=== PATIENT | male | born 1935 | race Caucasian/White ===

== ENCOUNTER 2019-10-24 11:41 | Inpatient (IN) | payer MEDICARE, SELFPAY ==
[2019-10-24] VITALS (8 sets, daily range): BP systolic 101–129; BP diastolic 53–74; PULSE 74–84; RESP 14–16; TEMP 36.6–37.4; O2SAT 96–98; BMI 22.4
--- NOTE | ~2019-10-24 | XR_ITS ---
EXAMINATION: XR chest 1V portable EXAM DATE: 10/27/2019 06:57 INDICATION: Leukocytosis. TECHNIQUE: Portable AP frontal chest x-ray was obtained. Comparison is made to prior examination from 10/24/2019. FINDINGS: Mild chronic hyperinflation. Borderline heart size. Small amount of right basilar opacity p robably atelectasis but pneumonia not excludable. There is no pneumothorax suspected. There are no pl eural effusions. There are bony degenerative changes. Accounting for differences in technique, there is no significant interval change. IMPRESSION: Small amount of right basilar atelectasis and/or possibly infection Reviewed, dictated and finalized at location A. IMPRESSION: Small amount of right basilar atelectasis and/or possibly infectio n
--- NOTE | ~2019-10-24 | CT_ITS ---
EXAMINATION: CT abdomen pelvis wo con DATE: 10/27/2019 12:31 INDICATION: Hydronephrosis TECHNIQUE: Computed tomography (CT) of the abdomen and pelvis was performed without intravenous contr ast. Automated exposure control and iterative reconstruction technique were employed. The dose-length product was 297.53 mGy-cm. COMPARISON: 10/24/2019 FINDINGS: Bronchiectatic change at the bilateral lung bases. Small right pleural effusion. Discoid atelectasis in the right middle and bilateral lower lobes. Pneumatocele in the left lower lobe. Heart size is nor mal. Atherosclerotic coronary artery calcifications. Aortic valve calcification. No pericardial effus ion. A couple subcentimeter cysts in the left hepatic lobe. Gallbladder, spleen, pancreas and bilater al adrenal glands are normal. Significant improvement in now minimal bilateral hydronephrosis. No uro lithiasis. Thapa catheter bulb and gas within the decompressed bladder which demonstrates a diffusely thickened wall. Prostatomegaly. Short loop of small bowel extends into a small supraumbilical ventra l hernia. No bowel obstruction. Small amount of ascites scattered throughout the abdomen and pelvis a nd extending into a small right inguinal hernia. Additional small fat-containing left inguinal hernia . No pathologically enlarged abdominal or pelvic lymphadenopathy. There is calcified atherosclerosis of the aorta and many of the other arteries. Severe thoracolumbar spondylosis. Chronic T11 and T12 c ompression fractures. 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 IMPRESSION: 1. Significant improvement in now minimal bilateral hydronephrosis with interval placement of a Thapa catheter in the now decompressed bladder. 2. Diffuse bladder wall thickening which could be related to cystitis either acute or chronic or supervisor prepress [place] outlet obstruction from the enlarged prostate. 3. Small right pleural effusion. 4. Small amount of ascites. 5. Short segment of nonobstructed small bowel extends into a small supraumbilical ventral hernia. 6. Small bilateral fat-containing inguinal hernias, on the right also containing a small amount of as cites. Reviewed, dictated and finalized at location A. IMPRESSION: 1. Significant improvement in now minimal bilateral hydronephrosis with interva l placement of a Thapa catheter in the now decompressed bladder. 2. Diffuse bladder wall thickening which could be related to cystitis either ac wendi or chronic or chronic outlet obstruction from the enlarged prostate. 3. Small right pleural effusion. 4. Small amount of ascites. 5. Short segment of nonobstructed small bowel extends into a small supraumbilic al ventral hernia. 6. Small bilateral fat-containing inguinal hernias, on the right also containin g a small amount of ascites.
--- NOTE | ~2019-10-24 | CT_ITS ---
EXAMINATION: CT abdomen pelvis wo con DATE: 10/24/2019 13:20 INDICATION: Umbilical pain TECHNIQUE: Computed tomography (CT) of the abdomen and pelvis was performed without intravenous contr ast. The dose-length product (DLP) was 364.34 mGy-cm. Automated exposure control and iterative recons truction technique were employed. COMPARISON: None FINDINGS: Minimal dependent atelectasis is present in the lung bases. The heart size is normal. Small cysts of the liver measure up to 3 mm in the left hepatic lobe. Within the limitations of noncontras t examination, the spleen, pancreas, gallbladder, and adrenal glands are normal. There is moderate to severe bilateral hydroureteronephrosis. There is diffuse thickening of the bladder wall. There appea rs to be layering hyperdense material in the urinary bladder. There is calcified atherosclerosis of t he aorta and many of the other arteries. No pathologically enlarged abdominal or pelvic lymph nodes a re identified. There is no free intraperitoneal gas or evidence of bowel obstruction. There is a smal l right inguinal hernia containing fat and ascites. There is severe lumbar spondylosis. There is mild right and advanced left hip osteoarthritis. IMPRESSION: 1. Diffuse circumferential bladder wall thickening which may reflect cystitis or chronic outlet obstr uction. Moderate to severe bilateral hydroureteronephrosis may also be due to chronic outlet obstruct ion. Reviewed, dictated and finalized at location A. IMPRESSION: 1. Diffuse circumferential bladder wall thickening which may reflect cystitis o r chronic outlet obstruction. Moderate to severe bilateral hydroureteronephrosi s may also be due to chronic outlet obstruction.
--- NOTE | ~2019-10-24 | XR_ITS ---
EXAMINATION: XR chest 2V DATE: 10/24/2019 13:15 INDICATION: Weakness. TECHNIQUE: Frontal and lateral views of the chest were obtained. COMPARISON: Chest 2 views 05/04/2017, CT abdomen and pelvis 10/24/2019 FINDINGS: There are lucencies in the lungs, consistent with emphysema. Calcified right lung nodules a nd calcified right hilar lymph nodes are consistent with old granulomatous disease. There is mild ate lectasis in the lower lung zones. No pleural effusion or pneumothorax. The heart size is normal. IMPRESSION: 1. Mild atelectasis in the lower lung zones. 2. Emphysema. Reviewed, dictated and finalized at location A.
--- NOTE | 2019-10-24 12:14 | ECG_ITS ---
Measurements Intervals [place] Rate: 79 P: 75 MN: 173 QRS: -9 QRSD: 117 T: 61 QT: 334 QTc: 384 Interpretive Statements SINUS RHYTHM VENTRICULAR PREMATURE COMPLEX INCOMPLETE RIGHT BUNDLE BRANCH BLOCK BORDERLINE ECG Electronically Signed On 10-24-2019 13:20:46 CDT by Conor Kim D.O.
[2019-10-24 12:37] LABS: Hematocrit 31.2 % (37.0-46.0); Hemoglobin 10.5 g/dL (12.4-15.3); Mean Corpuscular HGB Conc 33.7 g/dL (32.0-36.0); Mean Corpuscular Hemoglobin 31.2 pg (27.0-31.0); Mean Corpuscular Volume 92.6 fL (78.0-102.0); Mean Platelet Volume 9.3 fl (8.7-11.0); Platelet Count Result 245 K/mm3 (150-420); Red Blood Count 3.37 M/mm3 (4.70-6.10); Red Cell Distribution Width 14.8 % (11.6-14.4); White Blood Count 11.7 K/mm3 (4.8-10.8)
[2019-10-24] MEDS: SODIUM CHLORIDE 0.9% IV 1,000 ML 999 ML IV CONT (12:50)
[2019-10-24 12:58] LABS: BNP 319 pg/mL (0-100)
[2019-10-24 13:01] LABS: Add Urine Microscopic? YES; Appearance Urine Cloudy (Clear); Bilirubin Urine Negative (Negative); Blood Urine 3+ (Negative); Color Urine Yellow (Yellow); Glucose Urine UA Negative (Negative); Ketones Urine Negative (Negative); Leukocyte Esterase Ur 2+ (Negative); Nitrate Urine Positive (Negative); Protein Urine 2+ (Negative); Specific Grav Ur 1.015 (1.010-1.020); Urobilinogen Urine 0.2 mg/dL (0.2-1.0)
[2019-10-24 13:05] LABS: Lactic Acid 1.3 mmol/L (0.4-2.0)
--- NOTE | 2019-10-24 13:05 | ED.WEAKNESS ---
HPI - Weakness General Chief complaint: Weakness Stated complaint: weak Source: patient Mode of arrival: wheelchair Limitations: no limitations History of Present Illness HPI Narrative: This is an 84-year-old gentleman that lives at home presents from his doctor's office with some increasing generalized weakness, currently the patient is resting comfortably afebrile with no nausea vomiting no abdominal pain does have some suprapubic tenderness with mild bilateral flank tenderness with soft abdomen, there is no nausea vomiting no diarrhea constipation. Patient denies chest pain or shortness of breath. I was called by his primary care physician and was informed that the patient lives at home and family has been noticing increased weakness with a decreased appetite, and difficulty with walking. Patient also has been having some suprapubic tenderness and dysuria. Patient's past medical history includes hypertension and benign prostatic hypertrophy. MD Complaint: generalized weakness Onset (ago): day(s) Duration: constant Location: generalized Migration: none Severity: moderate Relieving factors: none Exacerbating factors: none Associated symptoms: denies other symptoms Related Data Home Medications Medication Instructions Recorded Confirmed lisinopril 10 mg PO HS 10/24/19 10/24/19 Allergies Allergy/AdvReac Type Severity Reaction Status Date / Time No Known Allergies Allergy Verified 10/24/19 13:42 Review of Systems Review of Systems: All systems reviewed & are unremarkable except as noted in HPI and below PMFSH Past Medical History Medical History BPH (benign prostatic hyperplasia) HTN (hypertension) Exam Const: General: no acute distress and alert Orientation/consciousness: patient oriented x3 HENMT: Head: normal to inspection Eyes: Conjunctivae: conjunctivae normal Pupils: Equal, round and reactive pupils present Neck: Neck: normal visual inspection and no lymphadenopathy Chest: Chest palpation & inspection: normal inspection of the chest Resp: Effort & Inspection: normal respiratory effort Auscultation: clear to auscultation bilaterally Cardio: Rate: regular rate Rhythm: regular rhythm GI: GI Palp: Yes Soft to palpation and Yes Tenderness to palpation present (GI) ( Suprapubic area) Percussion: Yes normal to percussion : General: Yes CVA tenderness Testes: Testes normal Back/Spine/Pelvis: Back: CVA tenderness Skin: General skin exam: normal color Rashes: no rashes Neuro: General: patient oriented x3, moves all extremities, no meningeal signs and no focal motor deficits Extrem: General: normal to inspection Psych: Mental Status: mental status grossly normal Thought content: Yes Normal thought content present MDM - Weakness Lab Data Result diagrams: 10/24/19 12:31 10/24/19 12:31 Labs: Lab Results 10/24/19 10/24/19 10/24/19 Range/Units 12:31 12:31 12:31 WBC 11.7 H (4.8-10.8) K/mm3 RBC 3.37 L (4.70-6.10) M/mm3 Hgb 10.5 L (12.4-15.3) g/dL Hct 31.2 L (37.0-46.0) % MCV 92.6 (78.0-102.0) fL MCH 31.2 H (27.0-31.0) pg MCHC 33.7 (32.0-36.0) g/dL RDW 14.8 H (11.6-14.4) % Plt Count 245 (150-420) K/mm3 MPV 9.3 (8.7-11.0) fl Sodium Pending Potassium Pending Chloride Pending Carbon Dioxide Pending Anion Gap Pending BUN Pending Creatinine Pending Estim Creat Clear Calc Pending Estimated GFR Pending Glucose Pending Calculated Osmolality Pending Lactic Acid Pending Calcium Pending Total Bilirubin Pending AST Pending ALT Pending Alkaline Phosphatase Pending Troponin I Pending B-Natriuretic Peptide 319 H (0-100) pg/mL Total Protein Pending Albumin Pending Lipase Pending TSH Pending Urine Color Urine Appearance Urine p
[2019-10-24 13:09] LABS: WBC Urine >75 /hpf (0-3)
[2019-10-24 13:10] LABS: Bacteria Urine Trace /hpf
[2019-10-24 13:15] LABS: Alanine Aminotransferase 29 U/L (16-63); Albumin Level 2.5 g/dL (3.4-5.0); Alkaline Phosphatase 59 U/L (46-116); Anion Gap 18.4 mmol/L (7-16); Aspartate Amino Transferase 22 U/L (15-37); Bilirubin,Total 0.5 mg/dL (0.00-1.00); Blood Urea Nitrogen 123 mg/dL (7-18); Calcium 9.2 mg/dL (8.5-10.1); Carbon Dioxide 20 mmol/L (21-32); Chloride 102 mmol/L (98-108); Estimated Glomerular Filt Rate 8; Glucose 120 mg/dL (70-99); Lipase 129 U/L (73-393); Osmolality Calculated 320 mOsm/kg (285-295); Potassium 5.4 mmol/L (3.5-5.1); Sodium 135 mmol/L (136-145); Total Protein 6.9 g/dL (6.4-8.2)
[2019-10-24 13:17] LABS: Troponin I < 0.02 ng/mL (0.00-0.056)
[2019-10-24] MEDS: SODIUM CHLORIDE 0.9% IV 1,000 ML 100 ML IV CONT (14:10)
--- NOTE | 2019-10-24 17:12 | ADMGEN ---
This patient, Grzegorz Stewart, was admitted to 2nd Floor Room 209-1. Patient/family oriented to hospital policies and general routines including ID bracelet, bed and alarms, visiting hours, pain management, procedures, bathroom and other care routines, personal items, smoking policy, room service/diet, and visiting hours. Valuables list has been completed. Information on how to activate the Rapid Response Team has been discussed. Patient/Family are encouraged to report perceived risks to care and to ask questions if they do not understand what they are told or what they should do.
--- NOTE | 2019-10-24 18:35 | PC.NURSE ---
Resting quietly in bed. IV fluids continued. Provided with extra blanket per request. Reports no other needs at present. Call light and belongings within reach.
[2019-10-24] MEDS: ACETAMINOPHEN 325 MG TABLET 650 MG PO (22:12)
[2019-10-25] VITALS (7 sets, daily range): BP systolic 86–115; BP diastolic 44–63; PULSE 74–87; RESP 12–18; TEMP 36.7–37.3; O2SAT 95–99
[2019-10-25] MEDS: SODIUM CHLORIDE 0.9% IV 1,000 ML 100 ML IV CONT ×2 (00:06→10:38)
[2019-10-25 08:21] LABS: Hematocrit 29.1 % (37.0-46.0); Hemoglobin 9.8 g/dL (12.4-15.3); Mean Corpuscular HGB Conc 33.7 g/dL (32.0-36.0); Mean Corpuscular Hemoglobin 31.1 pg (27.0-31.0); Mean Corpuscular Volume 92.4 fL (78.0-102.0); Mean Platelet Volume 9.4 fl (8.7-11.0); Platelet Count Result 234 K/mm3 (150-420); Red Blood Count 3.15 M/mm3 (4.70-6.10); Red Cell Distribution Width 14.6 % (11.6-14.4); White Blood Count 13.8 K/mm3 (4.8-10.8)
[2019-10-25 08:33] LABS: Alanine Aminotransferase 31 U/L (16-63); Albumin Level 2.2 g/dL (3.4-5.0); Alkaline Phosphatase 54 U/L (46-116); Anion Gap 10.5 mmol/L (7-16); Aspartate Amino Transferase 24 U/L (15-37); Bilirubin,Total 0.4 mg/dL (0.00-1.00); Blood Urea Nitrogen 95 mg/dL (7-18); Calcium 8.8 mg/dL (8.5-10.1); Carbon Dioxide 18 mmol/L (21-32); Chloride 100 mmol/L (98-108); Estimated CRCL calculation 11 ml/min; Estimated Glomerular Filt Rate 12; Glucose 97 mg/dL (70-99); Magnesium 2.1 mg/dL (1.8-2.4); Osmolality Calculated 287 mOsm/kg (285-295); Phosphorus 4.6 mg/dL (2.6-4.7); Potassium 4.5 mmol/L (3.5-5.1); Sodium 124 mmol/L (136-145); Total Protein 6.1 g/dL (6.4-8.2)
[2019-10-25 08:40] LABS: Neutrophils Percent Manual 80 % (46-73); Total Cells Counted 100
[2019-10-25 08:41] LABS: Band Neutrophils Percent 0 % (0-6); Basophils Percent Manual 0 % (0-1); Eosinophils Absolute Manual 0.13 K/mm3 (0.02-0.5); Eosinophils Percent Manual 1 % (1-6); Lymphocytes Absolute Manual 1.38 K/mm3 (1.1-4.5); Lymphocytes Percent Manual 10 % (18-44); Monocytes Absolute Manual 0.96 K/mm3 (0.1-0.90); Monocytes Percent Manual 7 % (3-9); Myelocytes Percent 2 %; Neutrophils Absolute Manual 11.04 K/mm3 (1.3-6.7); Platelet Estimate Adequate (Adequate)
[2019-10-25 08:42] LABS: BNP 319 pg/mL (0-100)
[2019-10-25] MEDS: TAMSULOSIN HCL 0.4 MG CAPSULE PO (09:34)
[2019-10-25 11:06] LABS: Prostate Specific Antigen 13.6 ng/mL (< OR = 4.0)
[2019-10-25 11:18] LABS: Potassium Urine Random 18.2 mmol/L (12-62)
[2019-10-25 11:21] LABS: Sodium Urine Random 75 mmol/L (20-110)
--- NOTE | 2019-10-25 11:30 | PC.NURSE ---
Patient provided with prune juice to assist in having BM. Tolerated well. Resting in bed. Denies any needs. States he feels better than yesterday but still doesnt feel well. Call landon at side. IV fluids cont. per order.
[2019-10-25 11:46] LABS: Eosinophil Urine 0 % (0-0)
[2019-10-25 13:15] LABS: Blood Urea Nitrogen 88 mg/dL (7-18); Calcium 8.5 mg/dL (8.5-10.1); Carbon Dioxide 20 mmol/L (21-32); Chloride 105 mmol/L (98-108); Estimated CRCL calculation 11 ml/min; Estimated Glomerular Filt Rate 13; Glucose 128 mg/dL (70-99); Osmolality Calculated 312 mOsm/kg (285-295); Sodium 137 mmol/L (136-145)
[2019-10-25 13:28] LABS: Amylase 49 U/L (25-115)
--- NOTE | 2019-10-25 13:45 | PC.NURSE ---
Patient had large bowel movement. Stool loose/liquid. Clean gown and socks applied to patient. Nurse assisted patient with jas-care. Patient transfered well with walker and gait belt. Sitting up in chair resting. PT Dane in room to work with patient.
--- NOTE | 2019-10-25 14:09 | PM.IMHP ---
H&P: HPI History of Present Illness Chief complaint: weak Narrative: Grzegorz Stewart is a 84 year old male story of Present Illness HPI Narrative: This is an 84-year-old gentleman that lives at home presents from his doctor's office with some increasing generalized weakness, currently the patient is resting comfortably afebrile with no nausea vomiting no abdominal pain does have some suprapubic tenderness with mild bilateral flank tenderness with soft abdomen, there is no nausea vomiting no diarrhea constipation. Patient denies chest pain or shortness of breath. I was called by his primary care physician and was informed that the patient lives at home and family has been noticing increased weakness with a decreased appetite, and difficulty with walking. Patient also has been having some suprapubic tenderness and dysuria. Patient's past medical history includes hypertension and benign prostatic hypertrophy. MD Complaint: generalized weakness Onset (ago): day(s) Duration: constant Location: generalized Migration: none Severity: moderate Relieving factors: none Exacerbating factors: none Review of Systems Review of Systems: All systems reviewed & are unremarkable except as noted in HPI and below Constitutional: Constitutional: Reports as per HPI, Reports fatigue, Reports lethargy and Reports weakness Eyes: Eyes: Reports as per HPI and Denies blurry vision ENT: Reports as per HPI, Reports Normal hearing present, Denies dysphagia, Denies epistaxis, Denies nasal congestion and Denies nasal discharge Cardiovascular: Cardiovascular: Reports as per HPI, Denies chest pain, Denies diaphoresis, Denies pedal edema, Denies leg edema, Denies lightheadedness and Denies palpitations Respiratory: Respiratory: Reports as per HPI, Denies chest congestion, Denies cough, Denies hemoptysis, Denies dyspnea, Denies dyspnea on exertion and Denies wheezing Gastrointestinal: Gastrointestinal: Reports as per HPI, Denies abdominal pain, Denies melena, Denies bloating, Denies hematochezia, Reports constipation (says he hasn't had a BM in 3 days & has been constipated lately at home.), Denies heartburn, Denies diarrhea, Denies nausea, Denies vomiting and Denies hematemesis Genitourinary: Genitourinary: Reports as per HPI, Denies hematuria, Reports oliguria, Reports dysuria, Denies flank pain, Reports urinary frequency, Reports urinary urgency and Reports other Comments: 2 inguinal hernias (right with past surgery and hardened scar tissue at that location but no pain or entrapment noted. CT scan noted it as well and said it contained fat and ascites.) (left soft, no pain, no entrapment noted). 1 umbilical hernia (soft, palpable, but bowel noted when patient sits up from lying position, then bowel retracts when patient relaxes, again no pain or entrapment noted). Musculoskeletal: Musculoskeletal: Reports as per HPI, Denies back pain, Reports myalgias, Denies arthralgias, Denies joint swelling, Denies neck pain and Reports stiffness Integumentary/Breasts: Skin/Breast: Reports as per HPI, Denies pruritus, Denies erythema, Denies rash, Denies skin pain and Reports wounds Comments: coccyx has a small pencil eraser sized wound noted at the top of buttock crease ( of patient has been applying antibiotic cream to it at home). No redness or drainage noted. Placed orders to help it heal. Neurologic: Reports as per HPI, Denies Abnormal speech present, Denies confusion, Denies headache(s) and Denies numbness Psychiatric: Psychiatric: Reports as per HPI, Denies anxiety, Denies confusion, Denies depression, Denies homicidal ideation and Denies suicidal ideation PMF Past Medical History Medical History BPH (benign prostatic hyperplasia) HTN (hypertension) Social History Social History Smoking status: Never smoker Alcohol intake: never Substance use: never Gender ident
[2019-10-25] MEDS: SODIUM CHLORIDE 0.9% IV 1,000 ML 75 ML IV CONT (21:10)
--- NOTE | 2019-10-25 21:20 | PM.EVENT ---
Event Note Event Note Event Note: Patient states he has been feeling a little better since yesterday. He denies abdominal pain, lightheadedness and shortness of breath. regular rate and rhythm without murmur or gallop. Lungs are clear to auscultation bilaterally. Abdomen is soft and nontender and without masses. Extremities are warm dry pink. Hyponatremia today is likely artifactual. Will closely watch his fluid status as well as the recovery of his kidney function over the next few days. I have examined the patient reviewed the chart. I discussed the patient's care with A Chema FOWLER and agree with her assessment plan.
[2019-10-25 21:25] LABS: Glucose Point of Care 116 (65-105)
--- NOTE | 2019-10-25 22:20 | PC.NURSE ---
Patient lying in bed watching tv. IVF infusing to site in RFA without difficulty. Thapa catheter patent and draining clear yellow urine. Denies pain/complaints/needs @ this time. No distress noted. Call light in reach.
[2019-10-26] VITALS (7 sets, daily range): BP systolic 105–120; BP diastolic 52–63; PULSE 75–84; RESP 16–18; TEMP 36.5–37.3; O2SAT 18–97
--- NOTE | 2019-10-26 01:15 | PC.NURSE ---
Patient appears to be sleeping by the rise and fall of his chest. Respirations even and unlabored. Catheter patent and draining clear yellow urine. No distress noted. Call light in reach.
[2019-10-26 05:32] LABS: Hematocrit 28.1 % (37.0-46.0); Hemoglobin 9.4 g/dL (12.4-15.3); Mean Corpuscular HGB Conc 33.5 g/dL (32.0-36.0); Mean Corpuscular Volume 92.7 fL (78.0-102.0); Mean Platelet Volume 9.5 fl (8.7-11.0); Platelet Count Result 287 K/mm3 (150-420); Red Blood Count 3.03 M/mm3 (4.70-6.10); Red Cell Distribution Width 14.6 % (11.6-14.4); White Blood Count 14.6 K/mm3 (4.8-10.8)
[2019-10-26 06:20] LABS: Alanine Aminotransferase 42 U/L (16-63); Alkaline Phosphatase 59 U/L (46-116); Anion Gap 17.9 mmol/L (7-16); Aspartate Amino Transferase 37 U/L (15-37); Bilirubin,Total 0.3 mg/dL (0.00-1.00); Blood Urea Nitrogen 70 mg/dL (7-18); Carbon Dioxide 19 mmol/L (21-32); Chloride 106 mmol/L (98-108); Estimated CRCL calculation 14 ml/min; Estimated Glomerular Filt Rate 17; Glucose 106 mg/dL (70-99); Iron 16 ug/dL (65-175); Osmolality Calculated 306 mOsm/kg (285-295); Percent Iron Saturation 14 % (12-57); Potassium 4.9 mmol/L (3.5-5.1); Sodium 138 mmol/L (136-145); Total Protein 5.2 g/dL (6.4-8.2)
[2019-10-26 06:36] LABS: Ferritin > 1000 ng/mL (26-388)
[2019-10-26] MEDS: TAMSULOSIN HCL 0.4 MG CAPSULE PO (08:48)
[2019-10-26] MEDS: SODIUM CHLORIDE 0.9% IV 1,000 ML 75 ML IV CONT (09:21)
--- NOTE | 2019-10-26 10:34 | PM.IMPN ---
Progress Note: A&P Assessment and Plan (1) Acute renal failure (ARF): Qualifiers: Acute renal failure type: unspecified Qualified Code(s): N17.9 - Acute kidney failure, unspecified <Mary Bear NP - Last Filed: 10/26/19 17:38> Code(s): N17.9 - Acute kidney failure, unspecified <Mary Bear NP - Last Filed: 10/26/19 17:38> Status: Acute <Mary Bear NP - Last Filed: 10/26/19 17:38> Assessment and Plan: ACUTE. IMPROVING. creatinine has continued to improve from 4.23 to 3.39 today. continued IVFs until today, discontinued today, differential diagnoses: obstruction of urine, UTI, dehydration. CT scan showed: moderate to severe bilateral hydroureteronephrosis. creatinine at admission was 6.47 yesterday, improved this morning to 4.57, and further improved this afternoon to 4.3 GFR values also improving potassium level improved from 5.4 at admission yesterday to 4.5 this morning encourage oral hydration renal dose medications maintain adequate blood pressures with maps greater than 60 or 65 monitor I/Os. <Mary Bear NP - Last Filed: 10/26/19 17:38> (2) Bladder outflow obstruction: Code(s): N32.0 - Bladder-neck obstruction <Mary Bear NP - Last Filed: 10/26/19 17:38> Status: Acute <Mary Bear NP - Last Filed: 10/26/19 17:38> Assessment and Plan: ACUTE. RESOLVED with kwok placement. Differential diagnoses include UTI, BPH, hernia. Kwok catheter inserted in the emergency room. Kwok catheter patency maintained I/Os : 1290/2350, 3213/1800. will need to maintain kwok patency until renal function (creatinine/GFR improves to WNL), then try discontinuing Kwok to see if patient is again able to urinate on his own and maintain adequate urine output) prior to discharge. Will need to follow up with Urologist soon after discharge. lipase and amylase level were both found to be within normal limits lactate level was 1.3 Kwok removal trial prior to discharge. <Mary Bear NP - Last Filed: 10/26/19 17:38> (3) Weakness: Code(s): R53.1 - Weakness <Mary Bear NP - Last Filed: 10/26/19 17:38> Status: Acute <Mary Bear NP - Last Filed: 10/26/19 17:38> Assessment and Plan: ACUTE. differential diagnoses include UTI, dehydration, acute renal failure. ordered PT and OT evaluation Improve protein intake and dietary consumption encourage oral hydration as well as provide IV hydration likely related to his anemia, iron deficiency anemia, found iron panel to be significantly low, started him on oral iron, once his white count has improved will order IV Venofer. troponin level x1 within normal limits BNP 319 repeated was again 319 TSH equals to which is normal <Mary Bear NP - Last Filed: 10/26/19 17:38> (4) BPH (benign prostatic hyperplasia): Code(s): N40.0 - Benign prostatic hyperplasia without lower urinary tract symptoms <Mary Bear NP - Last Filed: 10/26/19 17:38> Status: Acute <Mary Bear NP - Last Filed: 10/26/19 17:38> Assessment and Plan: started on Flomax admission Kwok catheter placed at admission for urine collection PSA level after catheter placed was elevated at 13.6 will need to follow-up with urologist shortly after discharge for BPH workup, urinary obstruction workup, and bladder retention as well as bladder hyperplasia and other CT findings that were abnormal: diffuse thickening of the bladder wall. There appears to be layering hyperdense material in the urinary bladder. There is a small right inguinal hernia containing fat and ascites. IMPRESSION: 1. Diffuse circumferential bladder wall thickening which may reflect cystitis or chronic outlet obstruction. Moderate to severe bilateral hydroureteronephrosis may also be due to chronic outlet obstruction <Mary Bear NP - Last Filed: 10/26/19
--- NOTE | 2019-10-26 11:00 | PC.NURSE ---
Addendum entered by Argentina Koroma RN 10/26/19 15:14: PT ON AIR MATTRESS AND ABLE TO T&P SELF, ENCOURAGED TO DO SO EVERY 1-2 HOURS. WILL MONITOR. Original Note: PT REQUESTED BARRIER CREAM RE-APPLICATION TO COCCYX, IT IS SORE . PT ROLLED TO RIGHT SIDE, OLD BARRIER CREAM REMOVED TO ASSESS FOR WOUND, PT NOTED TO HAVE 0.5CMX0.5CM ROUND OPEN WOUND TO COCCYX WITH YELLOW SLOUGH NOTED TO WOUND BED. NOTIFIED SIDRA PEREZ OF FINDINGS. N.O. REC TO CLEANSE AND APPLY SANTYL TO WOUND BED AND APPLY 4X4 AQUACEL FOAM DRESSING DAILY AND PRN. TREATMENT COMPLETED.
--- NOTE | 2019-10-26 16:00 | PC.NURSE ---
REVIEWED PT URINE CULTURE AND NOTED ESBL , NOTIFIED SIDRA PEREZ. PT PLACED ON CONTACT PRECAUTIONS. PT AWARE OF STATUS & RATIONALE. PPE PLACED OUTSIDE ROOM.
[2019-10-27] VITALS (8 sets, daily range): BP systolic 86–128; BP diastolic 47–62; PULSE 78–94; RESP 16–18; TEMP 36.6–37.3; O2SAT 96–99
[2019-10-27 05:37] LABS: Hematocrit 27.9 % (37.0-46.0); Hemoglobin 9.3 g/dL (12.4-15.3); Mean Corpuscular HGB Conc 33.3 g/dL (32.0-36.0); Mean Corpuscular Hemoglobin 30.9 pg (27.0-31.0); Mean Corpuscular Volume 92.7 fL (78.0-102.0); Mean Platelet Volume 9.3 fl (8.7-11.0); Platelet Count Result 328 K/mm3 (150-420); Red Blood Count 3.01 M/mm3 (4.70-6.10); Red Cell Distribution Width 14.4 % (11.6-14.4); White Blood Count 16.3 K/mm3 (4.8-10.8)
[2019-10-27 06:01] LABS: Alanine Aminotransferase 59 U/L (16-63); Albumin Level 2.1 g/dL (3.4-5.0); Alkaline Phosphatase 60 U/L (46-116); Aspartate Amino Transferase 51 U/L (15-37); Bilirubin,Total 0.4 mg/dL (0.00-1.00); Blood Urea Nitrogen 55 mg/dL (7-18); Calcium 7.9 mg/dL (8.5-10.1); Carbon Dioxide 20 mmol/L (21-32); Chloride 104 mmol/L (98-108); Estimated CRCL calculation 18 ml/min; Estimated Glomerular Filt Rate 23; Glucose 106 mg/dL (70-99); Osmolality Calculated 295 mOsm/kg (285-295); Sodium 135 mmol/L (136-145); Total Protein 5.3 g/dL (6.4-8.2)
--- NOTE | 2019-10-27 06:29 | PC.NURSE ---
Doctor notified of increased WBC
[2019-10-27] MEDS: TAMSULOSIN HCL 0.4 MG CAPSULE PO (08:10)
[2019-10-27] MEDS: PSYLLIUM POWDER PACKET 1 PACKET PO (08:10)
[2019-10-27 10:05] LABS: Add Urine Microscopic? YES; Appearance Urine Sl Cloudy (Clear); Bilirubin Urine Negative (Negative); Blood Urine 3+ (Negative); Color Urine Straw (Yellow); Glucose Urine UA Negative (Negative); Ketones Urine Negative (Negative); Leukocyte Esterase Ur 2+ (Negative); Nitrate Urine Negative (Negative); Protein Urine 1+ (Negative); Specific Grav Ur 1.015 (1.010-1.020); Urobilinogen Urine 0.2 mg/dL (0.2-1.0); pH Urine 5.5 (5.0-8.0)
[2019-10-27 10:12] LABS: Bacteria Urine 2+ /hpf; Mucus Urine Few /lpf; RBC Urine 21-50 /hpf (0-2); Squamous Epithelial Cell Urine Few /hpf (Few); WBC Urine 51-75 /hpf (0-3)
[2019-10-27] MEDS: POLYSACCHARIDE IRON COMPLEX 150 MG CAPSULE PO ×2 (11:43→17:02)
--- NOTE | 2019-10-27 12:15 | PC.NURSE ---
pt taken down for ct in w/c by tech
--- NOTE | 2019-10-27 12:58 | PM.IMPN ---
Progress Note: A&P Assessment and Plan (1) Acute renal failure (ARF): Qualifiers: Acute renal failure type: unspecified Qualified Code(s): N17.9 - Acute kidney failure, unspecified Code(s): N17.9 - Acute kidney failure, unspecified Status: Acute Assessment and Plan: ACUTE. IMPROVING. continued IVFs for first 3 days, then D/C'd, now encouraging oral hydration. differential diagnoses: obstruction of urine, UTI, dehydration. CT scan at admission showed: moderate to severe bilateral hydroureteronephrosis. Ordered repeat CT scan for today. creatinine at admission was 6.47, improved to 2.62 today. GFR values also improving potassium level stable at 5.0 this morning renal dose medications maintain adequate blood pressures with maps greater than 60 or 65 monitor I/Os. (2) Bladder outflow obstruction: Code(s): N32.0 - Bladder-neck obstruction Status: Acute Assessment and Plan: ACUTE. RESOLVED with kwok placement. Differential diagnoses include UTI, BPH, hernia. Kwok catheter inserted in the emergency room. Kwok catheter patency maintained I/Os : 1290/2350, 4903/2600, 1683/2100, 800/1650 will need to maintain kwok patency until renal function (creatinine/GFR improves to WNL), then try discontinuing Kwok to see if patient is again able to urinate on his own and maintain adequate urine output) prior to discharge. Will need to follow up with Urologist soon after discharge. lipase and amylase level were both found to be within normal limits lactate level was 1.3 Kwok removal trial prior to discharge. (3) Weakness: Code(s): R53.1 - Weakness Status: Acute Assessment and Plan: ACUTE. differential diagnoses include UTI, dehydration, acute renal failure, Emphysema (ordered incentive spirometer) . ordered PT and OT evaluation Improve protein intake and dietary consumption encourage oral hydration as well as provide IV hydration likely related to his anemia, iron deficiency anemia, found iron panel to be significantly low, started him on oral iron, once his white count has improved will order IV Venofer. troponin level x1 within normal limits BNP 319 repeated was again 319 TSH equals to which is normal (4) BPH (benign prostatic hyperplasia): Code(s): N40.0 - Benign prostatic hyperplasia without lower urinary tract symptoms Status: Acute Assessment and Plan: started on Flomax admission Kwok catheter placed at admission for urine collection PSA level after catheter placed was elevated at 13.6 will need to follow-up with urologist shortly after discharge for BPH workup, urinary obstruction workup, and bladder retention as well as bladder hyperplasia and other CT findings that were abnormal: diffuse thickening of the bladder wall. There appears to be layering hyperdense material in the urinary bladder. There is a small right inguinal hernia containing fat and ascites. IMPRESSION: 1. Diffuse circumferential bladder wall thickening which may reflect cystitis or chronic outlet obstruction. Moderate to severe bilateral hydroureteronephrosis may also be due to chronic outlet obstruction (5) Hyponatremia: Code(s): E87.1 - Hypo-osmolality and hyponatremia Status: Acute Assessment and Plan: ACUTE. RESOVLED. noted to have hyponatremia on this morning's labs sodium yesterday was 135, sodium today 124 in the morning urine electrolytes were ordered and collected and found to be within normal limits will repeat sodium level this afternoon, found to be 137 changed patient's diet from Renal to regular if sodium drops again will need to restrict free water fluids, and allow only fluids with electrolytes in them such as Sprite, milk, Ensure, juices, lemonade, decaffeinated tea, decaffeinated coffee decreased sodium chloride IV fluid from 100 mL an hour to 75 mils an hour at this time no neurological deficits noted will
--- NOTE | 2019-10-27 14:30 | PM.EVENT ---
Event Note Event Note Event Note: Pt. discussed with Mary Bear. Acute on chronic renal failure markedly improved: ? secondary to B.O.O. and secondary hydronephrosis and/or dehydration. GFR improved from 8 to 23 - grade V to grade IV. 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 No fever, WBC 16.3 this AM, rising. Had one dose (24 hr doses) of Cefipime (+ sensitivity). Has had no SOB or coughing. Cxr showed R basilar atalectasis. Pt. feels okay;board, frustrated he's in the hospital; wants to go home. Ventral hernia. \ Right inguinal, irregular, firm mass approx. 2 cm, mobile, nontender (being followed by PCP). D.R.E.: minimal soft stool in vault. Prostate is enlarged and lumpy; no bogginess, warmth or tenderness. PSA of 13.6 the day after kwok was inserted. Plan: continue cefepime, check WBC at 6 PM. Urology follow up has already been arranged post d.c. In view of B.O.O. and hydronephrosis with acute on chronic failure patient may not be aware of bladder distension. I favor keeping the kwok in until seen by urology.
[2019-10-27] MEDS: SODIUM CHLORIDE 0.9% IV 500 ML 999 ML IV CONT (16:14)
[2019-10-27] MEDS: SODIUM CHLORIDE 0.9% IV 1,000 ML 100 ML IV CONT (17:01)
[2019-10-27 18:07] LABS: Hemoglobin 9.3 g/dL (12.4-15.3); Mean Corpuscular HGB Conc 33.2 g/dL (32.0-36.0); Mean Corpuscular Hemoglobin 31.3 pg (27.0-31.0); Mean Corpuscular Volume 94.3 fL (78.0-102.0); Mean Platelet Volume 9.3 fl (8.7-11.0); Platelet Count Result 352 K/mm3 (150-420); Red Blood Count 2.97 M/mm3 (4.70-6.10); Red Cell Distribution Width 14.3 % (11.6-14.4); White Blood Count 15.3 K/mm3 (4.8-10.8)
--- NOTE | 2019-10-27 18:25 | P.PNCROSS_ITS ---
Event Note Event Note Event Note: * CT scan of abd/pelvis today: IMPRESSION: 1. Significant improvement in now minimal bilateral hydronephrosis with interval placement of a Kwok catheter in the now decompressed bladder. 2. Diffuse bladder wall thickening which could be related to cystitis either acute or chronic or chronic outlet obstruction from the enlarged prostate. 3. Small right pleural effusion. 4. Small amount of ascites. 5. Short segment of nonobstructed small bowel extends into a small supraumbilica l ventral hernia. 6. Small bilateral fat-containing inguinal hernias, on the right also containing a small amount of ascites. * Orthostatic changes in vitals: standing 86/52 laying 128/58. Pulse normal and no change. Given 500 ml saline bolus followed 100 ml hr. Since bolus urine output of 1,100. * WBC at 18:00 = 15.3 (16.3 this AM). Plan: Continue IV saline at 100 ml/hr. Continue cefipeme daily, continue kwok cath. Check AM labs.
--- NOTE | 2019-10-27 18:52 | P.PNCROSS_ITS ---
Event Note Event Note Event Note: My research from [facility] states In a review of 28 patients with ESBL-producing Klebsiella pneumoniae with reported susceptibility to cephalosporins, 15 failed to respond to cephalosporin therapy [[id number]]. A possible explanation for the inferior outcomes in patients treated with apparently active cephalosporins may be the inoculum effect, in which there is a marked increase in minimum inhibitory concentration (WILLIAM) with increased inoculum. Most available data do not encourage cefepime use for ESBL-producing pathogens The use of fluoroquinolones was not mentioned. Will d.c. cefepime and start meropenum based on calculated creatinine clearance of 20.
--- NOTE | 2019-10-27 20:31 | PC.NURSE ---
New order received for meripenim. Not available in pharmacy. Attempted to contact pharmacist to double check availability. Unable to contact. Doctor notified. Order changed to imipanem 200 mgs. Verified calculations with pharmacy. Dilute with 10 mls and and 4 ml to dextrose.
[2019-10-27] MEDS: IMIPENEM/CILASTATIN SODIUM 200 MG in DEXTROSE 5% 100 ML 300 MG IVPB (21:12)
[2019-10-28] VITALS: BP 107/61; PULSE 79; RESP 16; TEMP 37.2; O2SAT 97
[2019-10-28] MEDS: SODIUM CHLORIDE 0.9% IV 1,000 ML 100 ML IV CONT ×2 (03:18→14:17)
[2019-10-28] MEDS: IMIPENEM/CILASTATIN SODIUM 200 MG in DEXTROSE 5% 100 ML 300 MG IVPB ×4 (03:18→21:14)
[2019-10-28 03:27] VITALS: BP 110/51; PULSE 74; RESP 18; TEMP 37; O2SAT 96
[2019-10-28 05:30] LABS: Hematocrit 26.6 % (37.0-46.0); Hemoglobin 8.9 g/dL (12.4-15.3); Mean Corpuscular HGB Conc 33.5 g/dL (32.0-36.0); Mean Corpuscular Hemoglobin 31.3 pg (27.0-31.0); Mean Corpuscular Volume 93.7 fL (78.0-102.0); Mean Platelet Volume 9.1 fl (8.7-11.0); Platelet Count Result 363 K/mm3 (150-420); Red Blood Count 2.84 M/mm3 (4.70-6.10); Red Cell Distribution Width 14.1 % (11.6-14.4); White Blood Count 16.4 K/mm3 (4.8-10.8)
[2019-10-28 06:00] LABS: Alanine Aminotransferase 56 U/L (16-63); Alkaline Phosphatase 59 U/L (46-116); Anion Gap 14.7 mmol/L (7-16); Aspartate Amino Transferase 41 U/L (15-37); Bilirubin,Total 0.4 mg/dL (0.00-1.00); Blood Urea Nitrogen 43 mg/dL (7-18); Calcium 7.5 mg/dL (8.5-10.1); Carbon Dioxide 20 mmol/L (21-32); Chloride 104 mmol/L (98-108); Estimated CRCL calculation 22 ml/min; Estimated Glomerular Filt Rate 28; Glucose 105 mg/dL (70-99); Osmolality Calculated 288 mOsm/kg (285-295); Potassium 4.7 mmol/L (3.5-5.1); Sodium 134 mmol/L (136-145); Total Protein 5.3 g/dL (6.4-8.2)
[2019-10-28 07:35] VITALS: BP 115/60; PULSE 78; RESP 18; TEMP 36.8; O2SAT 96
[2019-10-28 09:00] VITALS: BP 115/60; PULSE 78
[2019-10-28] MEDS: TAMSULOSIN HCL 0.4 MG CAPSULE PO (09:41)
[2019-10-28] MEDS: POLYSACCHARIDE IRON COMPLEX 150 MG CAPSULE PO ×2 (09:41→17:16)
--- NOTE | 2019-10-28 09:58 | PM.IMPN ---
Progress Note: A&P Assessment and Plan (1) Acute renal failure (ARF): Qualifiers: Acute renal failure type: unspecified Qualified Code(s): N17.9 - Acute kidney failure, unspecified Code(s): N17.9 - Acute kidney failure, unspecified Status: Acute Assessment and Plan: ACUTE. IMPROVING. continuing IVFs at 100ml/hr and continue encouraging oral hydration. differential diagnoses: obstruction of urine, UTI, dehydration. CT scan at admission showed: moderate to severe bilateral hydroureteronephrosis. repeated CT scan showed improvement in now minimal bilateral hydronephrosis. No urolithiasis. No bowel obstruction. 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 Also evidence of emphysema and atelectasis - ordered and encouraged him to use the incentive spirometer. creatinine at admission was 6.47, improved to 2.2 today. GFR values also improving potassium level stable at 4.7, sodium level slightly low at 134. renal dose medications - agree with ED physicians and will NOT restart lisinopril at discharge (patient has been having intermittent hypotensive episodes and severe acute renal failure at admission) - his BP is already adequately controlled without. maintain adequate blood pressures with maps greater than 60 or 65 to encourage better renal perfusion. Voiding trial today. bladder ultrasounds PRN scheduled Bladder Training monitor closely for urine output is low and/or possibility of retention. Patient is at high risk for Bladder retention that leads to worsening ARF, will continue to keep strict I and O's. (2) Bladder outflow obstruction: Code(s): N32.0 - Bladder-neck obstruction Status: Acute Assessment and Plan: ACUTE. RESOLVED with kwok placement. Differential diagnoses include UTI, BPH, hernia. Kwok catheter inserted in the emergency room. Kwok catheter patency maintained I/Os : 1290/2350, 4903/2600, 1683/2100, 800/1650 will need to maintain kwok patency until renal function (creatinine/GFR improves to WNL), then try discontinuing Kwok to see if patient is again able to urinate on his own and maintain adequate urine output) prior to discharge. Will need to follow up with Urologist soon after discharge. lipase and amylase level were both found to be within normal limits lactate level was 1.3 Kwok removal trial prior to discharge. (3) Weakness: Code(s): R53.1 - Weakness Status: Acute Assessment and Plan: ACUTE. differential diagnoses include UTI, dehydration, acute renal failure, Emphysema (ordered incentive spirometer) . ordered PT and OT evaluation, they are evaluating and treating him on a daily basis as well. Improve protein intake and dietary consumption encourage oral hydration as well as provide IV hydration likely related to his anemia, iron deficiency anemia, found iron panel to be significantly low, started him on oral iron, once his white count has improved will order IV Venofer. troponin level x1 within normal limits BNP 319 repeated was again 319 TSH equals to which is normal Asked OT to complete a mini-mental exam and let me know the results. (4) BPH (benign prostatic hyperplasia): Code(s): N40.0 - Benign prostatic hyperplasia without lower urinary tract symptoms Status: Acute Assessment and Plan: started on Flomax admission Kwok catheter placed at admission for urine collection PSA level after catheter placed was elevated at 13.6 will need to follow-up with urologist shortly after discharge for BPH workup, urinary obstruction workup, and bladder retention as well as bladder hyperplasia and other CT findings that were abnormal: diffuse thickening of the bladder wall. There appears to be layering hyperdense material in the urinary bladder. There is a small right inguinal hernia containing fat and ascites. IMPRESSION: 1. Diffuse circumferential bladder wall thickening which may reflect cystit
--- NOTE | 2019-10-28 11:30 | PC.NURSE ---
Patient resting in bed with hob elevated. Patient has call light and belongings at side.IV fluids cont. per order.
[2019-10-28] MEDS: SACCHAROMYCES BOULARDII 250 MG CAPSULE PO ×2 (14:19→17:16)
[2019-10-28 15:50] VITALS: BP 117/65; PULSE 120; RESP 18; TEMP 37.1; O2SAT 97
--- NOTE | 2019-10-28 19:20 | PC.NURSE ---
Patient resting quietly in bed sleeping. No signs of distress noted. Breathing even and unlabored. Call light at side.
[2019-10-28 20:45] VITALS: BP 108/48; PULSE 78; RESP 18; TEMP 36.6; O2SAT 94
[2019-10-29] VITALS (9 sets, daily range): BP systolic 106–124; BP diastolic 60–68; PULSE 80–109; RESP 18–20; TEMP 36.3–37.6; O2SAT 97–98
[2019-10-29] MEDS: SODIUM CHLORIDE 0.9% IV 1,000 ML 100 ML IV CONT ×2 (01:42→14:02)
[2019-10-29] MEDS: IMIPENEM/CILASTATIN SODIUM 200 MG in DEXTROSE 5% 100 ML 300 MG IVPB ×4 (03:22→21:01)
[2019-10-29 05:26] LABS: Hematocrit 26.3 % (37.0-46.0); Hemoglobin 8.8 g/dL (12.4-15.3); Mean Corpuscular HGB Conc 33.5 g/dL (32.0-36.0); Mean Corpuscular Hemoglobin 31.3 pg (27.0-31.0); Mean Corpuscular Volume 93.6 fL (78.0-102.0); Mean Platelet Volume 8.7 fl (8.7-11.0); Platelet Count Result 373 K/mm3 (150-420); Red Blood Count 2.81 M/mm3 (4.70-6.10); White Blood Count 16.6 K/mm3 (4.8-10.8)
[2019-10-29 05:44] LABS: Alanine Aminotransferase 47 U/L (16-63); Albumin Level 1.9 g/dL (3.4-5.0); Alkaline Phosphatase 59 U/L (46-116); Anion Gap 14.8 mmol/L (7-16); Aspartate Amino Transferase 30 U/L (15-37); Bilirubin,Total 0.5 mg/dL (0.00-1.00); Blood Urea Nitrogen 37 mg/dL (7-18); Calcium 7.6 mg/dL (8.5-10.1); Carbon Dioxide 19 mmol/L (21-32); Chloride 104 mmol/L (98-108); Estimated CRCL calculation 23 ml/min; Estimated Glomerular Filt Rate 31; Glucose 100 mg/dL (70-99); Osmolality Calculated 284 mOsm/kg (285-295); Potassium 4.8 mmol/L (3.5-5.1); Sodium 133 mmol/L (136-145); Total Protein 5.8 g/dL (6.4-8.2)
[2019-10-29] MEDS: SACCHAROMYCES BOULARDII 250 MG CAPSULE PO ×3 (09:23→17:55)
[2019-10-29] MEDS: POLYSACCHARIDE IRON COMPLEX 150 MG CAPSULE PO ×2 (09:23→17:54)
[2019-10-29] MEDS: TAMSULOSIN HCL 0.4 MG CAPSULE PO (09:23)
[2019-10-29 09:27] LABS: Band Neutrophils Percent 1 % (0-6); Eosinophils Absolute Manual 0.33 K/mm3 (0.02-0.5); Eosinophils Percent Manual 2 % (1-6); Lymphocytes Absolute Manual 1.66 K/mm3 (1.1-4.5); Lymphocytes Percent Manual 10 % (18-44); Monocytes Absolute Manual 1.99 K/mm3 (0.1-0.90); Monocytes Percent Manual 12 % (3-9); Myelocytes Percent 1 %; Neutrophils Absolute Manual 12.45 K/mm3 (1.3-6.7); Neutrophils Percent Manual 74 % (46-73); Total Cells Counted 100
[2019-10-29 09:28] LABS: Platelet Estimate Adequate (Adequate)
[2019-10-29] MEDS: PSYLLIUM POWDER PACKET 1 PACKET PO (09:28)
[2019-10-29 09:42] LABS: CRP 6.4 mg/dL (0.0-0.9)
[2019-10-29 10:37] LABS: Erythrocyte Sedimentation Rate 60 mm/hr (0-20)
[2019-10-29] MEDS: ALBUMIN HUMAN 25% 25 GM/100 ML 100 ML IVPB (10:52)
--- NOTE | 2019-10-29 11:20 | PC.NURSE ---
patient resting quietly in bed. Reports no needs at this time. States he is feeling okay. IV medication infusing per order. Patient has call light at side.
--- NOTE | 2019-10-29 15:31 | PM.IMPN ---
Progress Note: A&P Assessment and Plan (1) Acute renal failure (ARF): Qualifiers: Acute renal failure type: unspecified Qualified Code(s): N17.9 - Acute kidney failure, unspecified <Mary Bear NP - Last Filed: 10/29/19 15:54> Code(s): N17.9 - Acute kidney failure, unspecified <Mary Bear NP - Last Filed: 10/29/19 15:54> Status: Acute <Mary Bear NP - Last Filed: 10/29/19 15:54> Assessment and Plan: ACUTE. IMPROVING. continuing IVFs at 100ml/hr and continue encouraging oral hydration. differential diagnoses: obstruction of urine, UTI, dehydration. CT scan at admission showed: moderate to severe bilateral hydroureteronephrosis. repeated CT scan showed improvement in now minimal bilateral hydronephrosis. No urolithiasis. No bowel obstruction. 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 Also evidence of emphysema and atelectasis - ordered and encouraged him to use the incentive spirometer. creatinine at admission was 6.47, improved to 2.04 today. GFR values also improving potassium level stable at 4.8, sodium level slightly low at 133. renal dose medications - agree with ED physicians and will NOT restart lisinopril at discharge (patient has been having intermittent hypotensive episodes and severe acute renal failure at admission) - his BP is already adequately controlled without. maintain adequate blood pressures with maps greater than 60 or 65 to encourage better renal perfusion. Voiding trial today. bladder ultrasounds PRN scheduled Bladder Training monitor closely for urine output is low and/or possibility of retention. Patient is at high risk for Bladder retention that leads to worsening ARF, will continue to keep strict I and O's. <Mary Bear NP - Last Filed: 10/29/19 15:54> (2) Bladder outflow obstruction: Code(s): N32.0 - Bladder-neck obstruction <Mary Bear NP - Last Filed: 10/29/19 15:54> Status: Acute <Mary Bear NP - Last Filed: 10/29/19 15:54> Assessment and Plan: ACUTE. RESOLVED with kwok placement. Differential diagnoses include UTI, BPH, hernia. Kwok catheter inserted in the emergency room. Kwok catheter patency maintained I/Os : 1290/2350, 4903/2600, 1683/2100, 800/1650 tolerated Kwok discontinuation, voiding well today and yesterday. Will need to follow up with Urologist in 3-14 days after discharge. lipase and amylase level were both found to be within normal limits lactate level was 1.3 at admission Discharge instructions to include: continue to monitor output closely at home with Urinal. <Mary Bear NP - Last Filed: 10/29/19 15:54> (3) Weakness: Code(s): R53.1 - Weakness <Mary Bear NP - Last Filed: 10/29/19 15:54> Status: Acute <Mary Bear NP - Last Filed: 10/29/19 15:54> Assessment and Plan: ACUTE. IMPROVED. RESOLVED. differential diagnoses include UTI, dehydration, acute renal failure, Emphysema (ordered incentive spirometer) . ordered PT and OT evaluation, they are evaluating and treating him on a daily basis as well. Improve protein intake and dietary consumption encourage oral hydration as well as provide IV hydration likely related to his anemia, iron deficiency anemia, found iron panel to be significantly low, started him on oral iron, once his white count has improved will order IV Venofer. troponin level x1 within normal limits BNP 319 repeated was again 319 TSH equals to which is normal Asked OT to complete a mini-mental exam and let me know the results. <Mary Bear NP - Last Filed: 10/29/19 15:54> (4) BPH (benign prostatic hyperplasia): Code(s): N40.0 - Benign prostatic hyperplasia without lower urinary tract symptoms <Mary Bear NP - Last Filed: 10/29/19 15:54> Status: Acute <Mary Bear NP - Last Filed: 10/29/19 15:54> Assessment and Plan:
--- NOTE | 2019-10-29 18:20 | PC.NURSE ---
patient resting in bed with hob elevated. Denies any needs.Call light at side. IV fluids infusing per order.
[2019-10-30] VITALS (8 sets, daily range): BP systolic 103–132; BP diastolic 51–69; PULSE 88–108; RESP 16–20; TEMP 36.5–37.8; O2SAT 96–99
[2019-10-30] MEDS: SODIUM CHLORIDE 0.9% IV 1,000 ML 100 ML IV CONT ×2 (01:13→13:42)
--- NOTE | 2019-10-30 02:07 | PC.NURSE ---
pt sleeping, respirations even and regular, no evidence of distress noted.
[2019-10-30] MEDS: IMIPENEM/CILASTATIN SODIUM 200 MG in DEXTROSE 5% 100 ML 300 MG IVPB ×3 (03:00→14:44)
[2019-10-30 04:46] LABS: Osmolality, Urine 391 mOsm/kg (50-1200)
[2019-10-30 06:08] LABS: Hematocrit 26.1 % (37.0-46.0); Hemoglobin 8.7 g/dL (12.4-15.3); Mean Corpuscular HGB Conc 33.3 g/dL (32.0-36.0); Mean Corpuscular Hemoglobin 31.1 pg (27.0-31.0); Mean Corpuscular Volume 93.2 fL (78.0-102.0); Mean Platelet Volume 8.8 fl (8.7-11.0); Platelet Count Result 419 K/mm3 (150-420); Red Cell Distribution Width 13.9 % (11.6-14.4)
[2019-10-30 06:24] LABS: Alanine Aminotransferase 36 U/L (16-63); Albumin Level 2.2 g/dL (3.4-5.0); Alkaline Phosphatase 56 U/L (46-116); Anion Gap 15.8 mmol/L (7-16); Aspartate Amino Transferase 22 U/L (15-37); Bilirubin,Total 0.8 mg/dL (0.00-1.00); Blood Urea Nitrogen 33 mg/dL (7-18); Carbon Dioxide 19 mmol/L (21-32); Chloride 104 mmol/L (98-108); Estimated CRCL calculation 24 ml/min; Estimated Glomerular Filt Rate 32; Glucose 102 mg/dL (70-99); Osmolality Calculated 285 mOsm/kg (285-295); Potassium 4.8 mmol/L (3.5-5.1); Sodium 134 mmol/L (136-145)
[2019-10-30] MEDS: POLYSACCHARIDE IRON COMPLEX 150 MG CAPSULE PO ×2 (09:12→17:37)
[2019-10-30] MEDS: SACCHAROMYCES BOULARDII 250 MG CAPSULE PO ×3 (09:18→17:37)
[2019-10-30] MEDS: TAMSULOSIN HCL 0.4 MG CAPSULE PO (09:19)
--- NOTE | 2019-10-30 14:48 | P.PNIM_ITS ---
Progress Note: A&P Assessment and Plan (1) Acute renal failure (ARF): Qualifiers: Acute renal failure type: unspecified Qualified Code(s): N17.9 - Acute kidney failure, unspecified Code(s): N17.9 - Acute kidney failure, unspecified Status: Acute Assessment and Plan: * ACUTE. IMPROVING. CREATININE CURRENTLY 1.9 * continuing IVFs at 100ml/hr and continue encouraging oral hydration. * differential diagnoses: obstruction of urine, UTI, dehydration. * CT scan at admission showed: moderate to severe bilateral hydroureteronephrosis. repeated CT scan showed improvement in now minimal bilateral hydronephrosis. No urolithiasis. No bowel obstruction. 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 Also evidence of emphysema and atelectasis - * creatinine at admission was 6.47, improved to 1.9 today. * GFR values also improving * potassium level stable at 4.8, sodium level slightly low at 134. * RENAL DOSE ALL MEDICATION * on discharge will evaluate whether patient will need lisinopril * bladder scans PRN * scheduled Bladder Training (2) Bladder outflow obstruction: Code(s): N32.0 - Bladder-neck obstruction Status: Acute Assessment and Plan: * ACUTE. RESOLVED with kwok placement. * Differential diagnoses include UTI, BPH, hernia. * reviewed eyes and nose * follow-up with urology neurologist (3) Weakness: Code(s): R53.1 - Weakness Status: Acute Assessment and Plan: * ACUTE. IMPROVED. RESOLVED. * possibly secondary to urinary tract infection and dehydration * continue physical therapy occupational therapy * continueprotein intake and dietary consumption * encourage oral hydration as well as provide IV hydration * iron panel to be significantly . continue p.o. iron supplement * troponin level x1 within normal limits * TSH equals to which is normal * mini-mental exam pending (4) BPH (benign prostatic hyperplasia): Code(s): N40.0 - Benign prostatic hyperplasia without lower urinary tract symptoms Status: Acute Assessment and Plan: * continue Flomax * PSA level after catheter placed was elevated at 13.6 * CT findings that were abnormal: diffuse thickening of the bladder wall. There appears to be layering hyperdense material in the urinary bladder. Diffuse circumferential bladder wall thickening which may reflect cystitis or chronic outlet obstruction. Moderate to severe bilateral hydroureteronephrosis may also be due to chronic outlet obstruction * patient passed voiding trial * patient will need to follow-up with the urologist on discharge (5) Hyponatremia: Code(s): E87.1 - Hypo-osmolality and hyponatremia Status: Acute Assessment and Plan: * ACUTE. INTERMITTENT. * slight improvement 134 today * continued sodium chloride IV fluid at 100 mL an hour * no neurological deficits noted * will continue to monitor with morning labs ordered * BMP in a.m. (6) UTI (urinary tract infection): Code(s): N39.0 - Urinary tract infection, site not specified Status: Acute Assessment and Plan: * ACUTE. * Blood cultures with no growth. * patient does report chills and fever * if patient continues to have fever complete CT of the abdomen and pelvis tomorrow * urine cultures are showing Klebsiella Oxytoca (ESBL) sensitive to cefepime, Imipenem and Cipro/Levaquin; but resistance to Rocephin. started patient on Primaxin 10/27/2019 * Placed him on contact isolation. * pat
--- NOTE | 2019-10-30 14:48 | PM.IMPN ---
Progress Note: A&P Assessment and Plan (1) Acute renal failure (ARF): Qualifiers: Acute renal failure type: unspecified Qualified Code(s): N17.9 - Acute kidney failure, unspecified Code(s): N17.9 - Acute kidney failure, unspecified Status: Acute Assessment and Plan: ACUTE. IMPROVING. CREATININE CURRENTLY 1.9 continuing IVFs at 100ml/hr and continue encouraging oral hydration. differential diagnoses: obstruction of urine, UTI, dehydration. CT scan at admission showed: moderate to severe bilateral hydroureteronephrosis. repeated CT scan showed improvement in now minimal bilateral hydronephrosis. No urolithiasis. No bowel obstruction. 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 Also evidence of emphysema and atelectasis - creatinine at admission was 6.47, improved to 1.9 today. GFR values also improving potassium level stable at 4.8, sodium level slightly low at 134. RENAL DOSE ALL MEDICATION on discharge will evaluate whether patient will need lisinopril bladder scans PRN scheduled Bladder Training (2) Bladder outflow obstruction: Code(s): N32.0 - Bladder-neck obstruction Status: Acute Assessment and Plan: ACUTE. RESOLVED with kwok placement. Differential diagnoses include UTI, BPH, hernia. reviewed eyes and nose follow-up with urology neurologist (3) Weakness: Code(s): R53.1 - Weakness Status: Acute Assessment and Plan: ACUTE. IMPROVED. RESOLVED. possibly secondary to urinary tract infection and dehydration continue physical therapy occupational therapy continueprotein intake and dietary consumption encourage oral hydration as well as provide IV hydration iron panel to be significantly . continue p.o. iron supplement troponin level x1 within normal limits TSH equals to which is normal mini-mental exam pending (4) BPH (benign prostatic hyperplasia): Code(s): N40.0 - Benign prostatic hyperplasia without lower urinary tract symptoms Status: Acute Assessment and Plan: continue Flomax PSA level after catheter placed was elevated at 13.6 CT findings that were abnormal: diffuse thickening of the bladder wall. There appears to be layering hyperdense material in the urinary bladder. Diffuse circumferential bladder wall thickening which may reflect cystitis or chronic outlet obstruction. Moderate to severe bilateral hydroureteronephrosis may also be due to chronic outlet obstruction patient passed voiding trial patient will need to follow-up with the urologist on discharge (5) Hyponatremia: Code(s): E87.1 - Hypo-osmolality and hyponatremia Status: Acute Assessment and Plan: ACUTE. INTERMITTENT. slight improvement 134 today continued sodium chloride IV fluid at 100 mL an hour no neurological deficits noted will continue to monitor with morning labs ordered BMP in a.m. (6) UTI (urinary tract infection): Code(s): N39.0 - Urinary tract infection, site not specified Status: Acute Assessment and Plan: ACUTE. Blood cultures with no growth. patient does report chills and fever if patient continues to have fever complete CT of the abdomen and pelvis tomorrow urine cultures are showing Klebsiella Oxytoca (ESBL) sensitive to cefepime, Imipenem and Cipro/Levaquin; but resistance to Rocephin. started patient on Primaxin 10/27/2019 Placed him on contact isolation. patient white count slightly increased yesterday 16.6 today 17 (7) Chronic pain: Code(s): G89.29 - Other chronic pain Status: Acute Assessment and Plan: Chronic. Due to significant bilateral hip arthritis and osteoarthritis pain worse with movement, and minimized at rest ordered Tylenol and lidocaine patches for pain will continue to follow will start PT OT (8) Hypotension due to hypovolemia: Co
[2019-10-30] MEDS: ACETAMINOPHEN 500 MG TABLET 1000 MG PO (17:37)
--- NOTE | 2019-10-30 19:42 | PM.EVENT ---
Event Note Event Note Event Note: Patient has a flat affect and monotone voice. Denies any pain but states that he does not feel well, has a poor appetite. No fever, vomiting, chills, chest pain or trouble breathing. Alert. Appropriate. Mildly disoriented. Mucous membranes are pink and moist. Lungs are clear to auscultation bilaterally without rales, rhonchi or wheezes. Regular rate rhythm without murmur or gallop. Distal pulses are full and symmetric in extremities are warm dry and pink. Patient grew Klebsiella oxytocin ESBL on 10/24/2019 urine culture. Was changed to imipenem. White count is slowly trending upward. CT scan on the revealed no abscess. Will consider ultrasound and further workup tomorrow if his symptoms and white count are not improving. I have examined the patient and reviewed the chart. I discussed the patient's care with Olena Guzman APN and agree with her assessment and plan.
[2019-10-30] MEDS: DOCUSATE SODIUM 100 MG CAPSULE PO (21:34)
[2019-10-31] VITALS (7 sets, daily range): BP systolic 104–144; BP diastolic 55–68; PULSE 76–92; RESP 18–20; TEMP 36.4–37.4; O2SAT 96–98
[2019-10-31] MEDS: SODIUM CHLORIDE 0.9% IV 1,000 ML 100 ML IV CONT ×3 (02:53→13:57)
[2019-10-31] MEDS: IMIPENEM/CILASTATIN SODIUM 200 MG in DEXTROSE 5% 100 ML 300 MG IVPB ×5 (02:55→20:42)
[2019-10-31 05:41] LABS: Hemoglobin 7.8 g/dL (12.4-15.3); Mean Corpuscular HGB Conc 32.5 g/dL (32.0-36.0); Mean Corpuscular Hemoglobin 30.8 pg (27.0-31.0); Mean Corpuscular Volume 94.9 fL (78.0-102.0); Mean Platelet Volume 9.1 fl (8.7-11.0); Platelet Count Result 378 K/mm3 (150-420); Red Blood Count 2.53 M/mm3 (4.70-6.10); Red Cell Distribution Width 14.1 % (11.6-14.4); White Blood Count 13.6 K/mm3 (4.8-10.8)
[2019-10-31 06:02] LABS: Alanine Aminotransferase 29 U/L (16-63); Albumin Level 2.1 g/dL (3.4-5.0); Alkaline Phosphatase 56 U/L (46-116); Anion Gap 16.9 mmol/L (7-16); Aspartate Amino Transferase 21 U/L (15-37); Bilirubin,Total 0.6 mg/dL (0.00-1.00); Blood Urea Nitrogen 38 mg/dL (7-18); Calcium 7.8 mg/dL (8.5-10.1); Carbon Dioxide 19 mmol/L (21-32); Chloride 103 mmol/L (98-108); Estimated CRCL calculation 23 ml/min; Estimated Glomerular Filt Rate 31; Glucose 101 mg/dL (70-99); Osmolality Calculated 287 mOsm/kg (285-295); Potassium 4.9 mmol/L (3.5-5.1); Sodium 134 mmol/L (136-145); Total Protein 5.3 g/dL (6.4-8.2)
--- NOTE | 2019-10-31 06:47 | PC.NURSE ---
Clarification on Imipenem doses. Dose began on 10/30/19 @ 2136 and stopped @ 2155. Next dose began on 09/01/19 @ 0255 and stopped @ 0315.
[2019-10-31] MEDS: POLYSACCHARIDE IRON COMPLEX 150 MG CAPSULE PO ×2 (08:21→17:22)
[2019-10-31] MEDS: TAMSULOSIN HCL 0.4 MG CAPSULE PO (08:21)
[2019-10-31] MEDS: PSYLLIUM POWDER PACKET 1 PACKET PO (08:22)
[2019-10-31] MEDS: SACCHAROMYCES BOULARDII 250 MG CAPSULE PO ×3 (08:22→17:23)
[2019-10-31] MEDS: DOCUSATE SODIUM 100 MG CAPSULE PO ×2 (08:22→20:42)
--- NOTE | 2019-10-31 13:49 | P.PNIM_ITS ---
Progress Note: A&P Assessment and Plan (1) Acute renal failure (ARF): Qualifiers: Acute renal failure type: unspecified Qualified Code(s): N17.9 - Acute kidney failure, unspecified Code(s): N17.9 - Acute kidney failure, unspecified Status: Acute Assessment and Plan: * ACUTE. IMPROVING. CREATININE CURRENTLY 2.06 * differential diagnoses: obstruction of urine, UTI, dehydration. * CT scan at admission showed: moderate to severe bilateral hydroureteronephrosis. repeated CT scan showed improvement in now minimal bilateral hydronephrosis. No urolithiasis. No bowel obstruction. 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 Also evidence of emphysema and atelectasis - * creatinine at admission was 6.47, improved to 2.06 today. * GFR values also improving * potassium level stable at 4.9, sodium level slightly low at 134. * RENAL DOSE ALL MEDICATION * on discharge will evaluate whether patient will need lisinopril * bladder scans PRN * scheduled Bladder Training (2) Bladder outflow obstruction: Code(s): N32.0 - Bladder-neck obstruction Status: Acute Assessment and Plan: * ACUTE. RESOLVED with kwok placement. * Differential diagnoses include UTI, BPH, hernia. * reviewed eyes and nose * follow-up with urology neurologist (3) Weakness: Code(s): R53.1 - Weakness Status: Acute Assessment and Plan: * ACUTE. IMPROVED. RESOLVED. * possibly secondary to urinary tract infection and dehydration * continue physical therapy occupational therapy * continueprotein intake and dietary consumption * encourage oral hydration as well as provide IV hydration * iron panel to be significantly . continue p.o. iron supplement * troponin level x1 within normal limits * TSH equals to which is normal * mini-mental exam pending (4) BPH (benign prostatic hyperplasia): Code(s): N40.0 - Benign prostatic hyperplasia without lower urinary tract symptoms Status: Acute Assessment and Plan: * continue Flomax * PSA level after catheter placed was elevated at 13.6 * CT findings that were abnormal: diffuse thickening of the bladder wall. There appears to be layering hyperdense material in the urinary bladder. Diffuse circumferential bladder wall thickening which may reflect cystitis or chronic outlet obstruction. Moderate to severe bilateral hydroureteronephrosis may also be due to chronic outlet obstruction * patient passed voiding trial * patient will need to follow-up with the urologist on discharge (5) Hyponatremia: Code(s): E87.1 - Hypo-osmolality and hyponatremia Status: Acute Assessment and Plan: * ACUTE. INTERMITTENT. * slight improvement 134 today * no neurological deficits noted * will continue to monitor with morning labs ordered * BMP in a.m. (6) UTI (urinary tract infection): Code(s): N39.0 - Urinary tract infection, site not specified Status: Acute Assessment and Plan: * ACUTE. * Blood cultures with no growth. * patient does report chills and fever * if patient continues to have fever complete CT of the abdomen and pelvis tomorrow * urine cultures are showing Klebsiella Oxytoca (ESBL) sensitive to cefepime, Imipenem and Cipro/Levaquin; but resistance to Rocephin. started patient on Primaxin 10/27/2019 * Placed him on contact isolation. * patient white count slightly increased yesterday 16.6 today 13.6 (7) Chronic pain: Cod
--- NOTE | 2019-10-31 13:49 | PM.IMPN ---
Progress Note: A&P Assessment and Plan (1) Acute renal failure (ARF): Qualifiers: Acute renal failure type: unspecified Qualified Code(s): N17.9 - Acute kidney failure, unspecified Code(s): N17.9 - Acute kidney failure, unspecified Status: Acute Assessment and Plan: ACUTE. IMPROVING. CREATININE CURRENTLY 2.06 differential diagnoses: obstruction of urine, UTI, dehydration. CT scan at admission showed: moderate to severe bilateral hydroureteronephrosis. repeated CT scan showed improvement in now minimal bilateral hydronephrosis. No urolithiasis. No bowel obstruction. 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 Also evidence of emphysema and atelectasis - creatinine at admission was 6.47, improved to 2.06 today. GFR values also improving potassium level stable at 4.9, sodium level slightly low at 134. RENAL DOSE ALL MEDICATION on discharge will evaluate whether patient will need lisinopril bladder scans PRN scheduled Bladder Training (2) Bladder outflow obstruction: Code(s): N32.0 - Bladder-neck obstruction Status: Acute Assessment and Plan: ACUTE. RESOLVED with kwok placement. Differential diagnoses include UTI, BPH, hernia. reviewed eyes and nose follow-up with urology neurologist (3) Weakness: Code(s): R53.1 - Weakness Status: Acute Assessment and Plan: ACUTE. IMPROVED. RESOLVED. possibly secondary to urinary tract infection and dehydration continue physical therapy occupational therapy continueprotein intake and dietary consumption encourage oral hydration as well as provide IV hydration iron panel to be significantly . continue p.o. iron supplement troponin level x1 within normal limits TSH equals to which is normal mini-mental exam pending (4) BPH (benign prostatic hyperplasia): Code(s): N40.0 - Benign prostatic hyperplasia without lower urinary tract symptoms Status: Acute Assessment and Plan: continue Flomax PSA level after catheter placed was elevated at 13.6 CT findings that were abnormal: diffuse thickening of the bladder wall. There appears to be layering hyperdense material in the urinary bladder. Diffuse circumferential bladder wall thickening which may reflect cystitis or chronic outlet obstruction. Moderate to severe bilateral hydroureteronephrosis may also be due to chronic outlet obstruction patient passed voiding trial patient will need to follow-up with the urologist on discharge (5) Hyponatremia: Code(s): E87.1 - Hypo-osmolality and hyponatremia Status: Acute Assessment and Plan: ACUTE. INTERMITTENT. slight improvement 134 today no neurological deficits noted will continue to monitor with morning labs ordered BMP in a.m. (6) UTI (urinary tract infection): Code(s): N39.0 - Urinary tract infection, site not specified Status: Acute Assessment and Plan: ACUTE. Blood cultures with no growth. patient does report chills and fever if patient continues to have fever complete CT of the abdomen and pelvis tomorrow urine cultures are showing Klebsiella Oxytoca (ESBL) sensitive to cefepime, Imipenem and Cipro/Levaquin; but resistance to Rocephin. started patient on Primaxin 10/27/2019 Placed him on contact isolation. patient white count slightly increased yesterday 16.6 today 13.6 (7) Chronic pain: Code(s): G89.29 - Other chronic pain Status: Acute Assessment and Plan: Chronic. Due to significant bilateral hip arthritis and osteoarthritis pain worse with movement, and minimized at rest ordered Tylenol and lidocaine patches for pain will continue to follow will start PT OT (8) Hypotension due to hypovolemia: Code(s): I95.89 - Other hypotension; E86.1 - Hypovolemia Status: Acute Assessment and Plan: resolved blo
[2019-10-31] MEDS: polyethylene glycoL 3350 17 GM POWD.PACK PO (17:23)
[2019-10-31] MEDS: SENNA/DOCUSATE SODIUM TABLET 1 TAB PO (20:42)
[2019-11-01] MEDS: SODIUM CHLORIDE 0.9% IV 1,000 ML 100 ML IV CONT (01:27)
[2019-11-01] MEDS: IMIPENEM/CILASTATIN SODIUM 200 MG in DEXTROSE 5% 100 ML IVPB ×2 (03:12→08:47)
[2019-11-01 03:21] VITALS: BP 113/66; PULSE 89; RESP 18; TEMP 37.1; O2SAT 96
[2019-11-01 07:50] VITALS: BP 146/68; PULSE 78; RESP 16; TEMP 36.4; O2SAT 96
[2019-11-01] MEDS: SACCHAROMYCES BOULARDII 250 MG CAPSULE PO (08:20)
[2019-11-01] MEDS: TAMSULOSIN HCL 0.4 MG CAPSULE PO (08:21)
[2019-11-01] MEDS: DOCUSATE SODIUM 100 MG CAPSULE PO (08:21)
[2019-11-01] MEDS: POLYSACCHARIDE IRON COMPLEX 150 MG CAPSULE PO (08:21)
[2019-11-01 08:51] LABS: Hematocrit 25.8 % (37.0-46.0); Hemoglobin 8.5 g/dL (12.4-15.3); Mean Corpuscular HGB Conc 32.9 g/dL (32.0-36.0); Mean Corpuscular Hemoglobin 31.3 pg (27.0-31.0); Mean Corpuscular Volume 94.9 fL (78.0-102.0); Mean Platelet Volume 8.5 fl (8.7-11.0); Platelet Count Result 379 K/mm3 (150-420); Red Blood Count 2.72 M/mm3 (4.70-6.10); Red Cell Distribution Width 13.8 % (11.6-14.4); White Blood Count 13.2 K/mm3 (4.8-10.8)
[2019-11-01 09:07] LABS: Alanine Aminotransferase 39 U/L (16-63); Albumin Level 2.1 g/dL (3.4-5.0); Alkaline Phosphatase 60 U/L (46-116); Anion Gap 14.8 mmol/L (7-16); Aspartate Amino Transferase 37 U/L (15-37); Bilirubin,Total 0.7 mg/dL (0.00-1.00); Blood Urea Nitrogen 37 mg/dL (7-18); Calcium 8.3 mg/dL (8.5-10.1); Carbon Dioxide 20 mmol/L (21-32); Chloride 104 mmol/L (98-108); Estimated CRCL calculation 24 ml/min; Estimated Glomerular Filt Rate 32; Glucose 129 mg/dL (70-99); Osmolality Calculated 288 mOsm/kg (285-295); Potassium 4.8 mmol/L (3.5-5.1); Sodium 134 mmol/L (136-145); Total Protein 6.1 g/dL (6.4-8.2)
--- NOTE | 2019-11-01 12:11 | P.DS_ITS ---
DS: Diagnosis Admitting Diagnosis Admitting Diagnosis: Acute kidney failure, unspecified <Karla GuzmanGHAZALA - Last Filed: 11/01/19 12:35> Discharge Diagnosis (1) Acute renal failure (ARF): Qualifiers: Acute renal failure type: unspecified Qualified Code(s): N17.9 - Acute kidney failure, unspecified <Karla GuzmanGHAZALA - Last Filed: 11/01/19 12:35> Code(s): N17.9 - Acute kidney failure, unspecified <Karla GuzmanGHAZALA - Last Filed: 11/01/19 12:35> Status: Acute <Karla Cowart GHAZALA Guzman - Last Filed: 11/01/19 12:35> Assessment and Plan: * ACUTE. * differential diagnoses: obstruction of urine, UTI, dehydration. * CT scan at admission showed: moderate to severe bilateral hydroureteronephrosis. repeated CT scan showed improvement in now minimal bilateral hydronephrosis. No urolithiasis. No bowel obstruction. 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 Also evidence of emphysema and atelectasis - * patient has a repeat BMP in 1 week with results being sent to his PCP. PCP notified patient's creatinine level * RENAL DOSE ALL MEDICATION * patient's lisinopril discontinue. according to the PCP issues have discontinue. <Karla JfGHAZALA Gould - Last Filed: 11/01/19 12:35> (2) Bladder outflow obstruction: Code(s): N32.0 - Bladder-neck obstruction <GHAZALA Singletary - Last Filed: 11/01/19 12:35> Status: Acute <Karla JfGHAZALA Gould - Last Filed: 11/01/19 12:35> Assessment and Plan: * ACUTE. RESOLVEd * Differential diagnoses include UTI, BPH, hernia. * follow-up with scrap worker <GHAZALA Singletary - Last Filed: 11/01/19 12:35> (3) Weakness: Code(s): R53.1 - Weakness <GHAZALA Singletary - Last Filed: 11/01/19 12:35> Status: Acute <Karla JfGHAZALA Gould - Last Filed: 11/01/19 12:35> Assessment and Plan: * improved * possibly secondary to urinary tract infection and dehydration * patient refused outpatient physical therapy/occupational therapy <Karla GuzmanZULLYNavinWally - Last Filed: 11/01/19 12:35> (4) BPH (benign prostatic hyperplasia): Code(s): N40.0 - Benign prostatic hyperplasia without lower urinary tract symptoms <Karla RhoadesZULLY GouldNavinWally - Last Filed: 11/01/19 12:35> Status: Acute <Karla Guzman GHAZALA - Last Filed: 11/01/19 12:35> Assessment and Plan: * continue Flomax * PSA level after catheter placed was elevated at 13.6 * CT findings that were abnormal: diffuse thickening of the bladder wall. There appears to be layering hyperdense material in the urinary bladder. Diffuse circumferential bladder wall thickening which may reflect cystitis or chronic outlet obstruction. Moderate to severe bilateral hydroureteronephrosis may also be due to chronic outlet obstructio * patient will need to follow-up with the urologist on discharge <Karla RhoadesZULLY GuoldNavinWally - Last Filed: 11/01/19 12:35> (5) Hyponatremia: Code(s): E87.1 - Hypo-osmolality and hyponatremia <Karla RhoadesALHAJI GouldTiffanieWally - Last Filed: 11/01/19 12:35> Status: Acute <Karla RhoadesMichelle Guzman GHAZALA - Last Filed: 11/01/19 12:35> Assessment and Plan: * ACUTE. improved since admission <ZULLY SingletaryNavinWally - Last Filed: 11/01/19 12:35> (6) UTI (urinary tract infection): Code(s): N39.0 - Urinary tract infection, site not specified <ZULLY SingletaryNavinWally - Last Filed: 11/01/19 12:35> Status: Acute <
--- NOTE | 2019-11-01 12:11 | PM.DS ---
DS: Diagnosis Admitting Diagnosis Admitting Diagnosis: Acute kidney failure, unspecified <Karla GuzmanGHAZALA - Last Filed: 11/01/19 12:35> Discharge Diagnosis (1) Acute renal failure (ARF): Qualifiers: Acute renal failure type: unspecified Qualified Code(s): N17.9 - Acute kidney failure, unspecified <Karla GuzmanGHAZALA - Last Filed: 11/01/19 12:35> Code(s): N17.9 - Acute kidney failure, unspecified <Karla GuzmanGHAZALA - Last Filed: 11/01/19 12:35> Status: Acute <Karla Cowart GHAZALA Guzman - Last Filed: 11/01/19 12:35> Assessment and Plan: ACUTE. differential diagnoses: obstruction of urine, UTI, dehydration. CT scan at admission showed: moderate to severe bilateral hydroureteronephrosis. repeated CT scan showed improvement in now minimal bilateral hydronephrosis. No urolithiasis. No bowel obstruction. 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 Also evidence of emphysema and atelectasis - patient has a repeat BMP in 1 week with results being sent to his PCP. PCP notified patient's creatinine level RENAL DOSE ALL MEDICATION patient's lisinopril discontinue. according to the PCP issues have discontinue. <Karla JfGHAZALA Gould - Last Filed: 11/01/19 12:35> (2) Bladder outflow obstruction: Code(s): N32.0 - Bladder-neck obstruction <GHAZALA Singletary - Last Filed: 11/01/19 12:35> Status: Acute <Karla JfGHAZALA Gould - Last Filed: 11/01/19 12:35> Assessment and Plan: ACUTE. RESOLVEd Differential diagnoses include UTI, BPH, hernia. follow-up with block layer <GHAZALA Singletary - Last Filed: 11/01/19 12:35> (3) Weakness: Code(s): R53.1 - Weakness <GHAZALA Singletary - Last Filed: 11/01/19 12:35> Status: Acute <GHAZALA Singletary - Last Filed: 11/01/19 12:35> Assessment and Plan: improved possibly secondary to urinary tract infection and dehydration patient refused outpatient physical therapy/occupational therapy <Karla Guzman GHAZALA - Last Filed: 11/01/19 12:35> (4) BPH (benign prostatic hyperplasia): Code(s): N40.0 - Benign prostatic hyperplasia without lower urinary tract symptoms <Karla RhoadesMichelle Guzman RIKIWally - Last Filed: 11/01/19 12:35> Status: Acute <Karla Guzman GHAZALA - Last Filed: 11/01/19 12:35> Assessment and Plan: continue Flomax PSA level after catheter placed was elevated at 13.6 CT findings that were abnormal: diffuse thickening of the bladder wall. There appears to be layering hyperdense material in the urinary bladder. Diffuse circumferential bladder wall thickening which may reflect cystitis or chronic outlet obstruction. Moderate to severe bilateral hydroureteronephrosis may also be due to chronic outlet obstructio patient will need to follow-up with the urologist on discharge <Karla RhoadesMichelle Guzman GHAZALA - Last Filed: 11/01/19 12:35> (5) Hyponatremia: Code(s): E87.1 - Hypo-osmolality and hyponatremia <Karla Guzman GHAZALA - Last Filed: 11/01/19 12:35> Status: Acute <Karla Guzman GHAZALA - Last Filed: 11/01/19 12:35> Assessment and Plan: ACUTE. improved since admission <Karla RhoadesMichelle Thomas RIKIWally - Last Filed: 11/01/19 12:35> (6) UTI (urinary tract infection): Code(s): N39.0 - Urinary tract infection, site not specified <Karla RhoadesMichelle Guzman GHAZALA - Last Filed: 11/01/19 12:35> Status: Acute <Karla Cowart Thomas GHAZALA - Last Filed: 11/01/19 12:35> Assessment and Plan: ACUTE. 2nd Blood cultures with no growth patient does report chills and fever if patient continues to have fever complete CT of the abdomen and pelvis tomorrow urine cultures are showing Klebsiella Oxytoca (ESBL) sensitive to cefepime, Imipenem and Cipro/Levaquin; but resistance to
[2019-11-01 12:19] VITALS: BP 123/56; PULSE 78; RESP 16; TEMP 36.7; O2SAT 97
--- NOTE | 2019-11-01 13:45 | PC.NURSE ---
pt discharged from facility via w/c to waiting private car at 13:15. discharge instructions sent and reviewed. pt voiced understanding.
--- NOTE | 2019-11-06 14:25 | PC.NURSE ---
DISCHARGE FOLLOW UP CALL: No answer, message left at: [phone]
--- NOTE | 2019-11-25 08:04 | PCOTNOTE ---
Patient is discharged from skilled OT services and has returned home with family. See patient's last treatment note for current skills and level of function. MS
== END 2019-11-01 13:15 | disposition home or self-care (01) | DRG 682 ==
LOC: CHSED 13:50 → CHS2ND 14:24
PROVIDERS: Family Medicine; Nurse Practitioner; Admitting Provider Emergency Medicine; Emergency Provider Emergency Medicine; PCP Internal Medicine; Visit Provider Emergency Medicine
DX: E86.0 Dehydration (principal); N17.9 Acute kidney failure, unspecified; L89.153 Pressure ulcer of sacral region, stage 3; N13.8 Other obstructive and reflux uropathy; N32.0 Bladder-neck obstruction; N39.0 Urinary tract infection, site not specified; E87.1 Hypo-osmolality and hyponatremia; N40.1 Benign prostatic hyperplasia with lower urinary tract symptoms; I10 Essential (primary) hypertension; N13.30 Unspecified hydronephrosis; D50.9 Iron deficiency anemia, unspecified; K42.9 Umbilical hernia without obstruction or gangrene; K40.20 Bilateral inguinal hernia, without obstruction or gangrene, not specified as recurrent; B96.89 Other specified bacterial agents as the cause of diseases classified elsewhere
CPT/HCPCS: 36415; 71045; 71046; 74176; 80048; 80053; 81001; 82150; 82728; 83540; 83550; 83605; 83690; 83735; 83880; 83935; 84100; 84105; 84133; 84153; 84300; 84443; 84484; 85025; 85027; 85652; 85999; 86140; 87040; 87045; 87046; 87077; 87086; 87088; 87186; 87269; 87272; 87324; 87427; 88305; 89055; 93005; 96361; 96365; 97110; 97161; 97165; 97530; 97535; 99284; 99285; A9270; J0692; J0696; J0743; J7030; J7040; P9047

== ENCOUNTER 2023-09-27 12:13 | Emergency (ER) | payer MEDICARE, SELFPAY ==
[2023-09-27] VITALS (14 sets, daily range): BP systolic 146–175; BP diastolic 74–95; PULSE 83–94; RESP 17–20; O2SAT 95–99
--- NOTE | ~2023-09-27 | CT_ITS ---
EXAMINATION: CT brain wo con DATE: 09/27/2023 12:31 INDICATION: Acute onset right arm weakness. TECHNIQUE: Computed tomography (CT) of the head was performed without intravenous contrast. Sagittal and coronal reconstructions were performed. The mA was adjusted according to patient size. Iterative reconstruction technique was employed. The dose-length product was 681.00 mGy-cm. COMPARISON: head CT dated 01/07/2019 FINDINGS: No acute intracranial hemorrhage, acute infarction or abnormal extra axial fluid collection. There is mild scattered white matter hypoattenuation consistent with chronic small vessel ischemic disease. S ymmetric prominence of the sulci consistent with mild age-appropriate diffuse cerebral volume loss. V entricles are normal and symmetric. No mass/mass effect. Changes of bilateral intraocular lens replac ement. The orbits, paranasal sinuses and mastoid air cells are normal. IMPRESSION: 1. No acute intracranial process. 2. Stable appearance of age-related changes including mild diffuse volume loss and mild scattered whi te matter hypoattenuation consistent with chronic small vessel ischemic disease. Reviewed, dictated and finalized at location A. IMPRESSION: 1. No acute intracranial process. 2. Stable appearance of age-related changes including mild diffuse volume loss and mild scattered white matter hypoattenuation consistent with chronic small v essel ischemic disease.
--- NOTE | 2023-09-27 12:18 | ECG_ITS ---
Measurements Intervals [place] Rate: 86 P: 49 CA: 175 QRS: -5 QRSD: 129 T: -8 QT: 377 QTc: 451 Interpretive Statements SINUS RHYTHM RIGHT BUNDLE BRANCH BLOCK CONSIDER INFERIOR INFARCT, AGE INDETERMINATE BASELINE ARTIFACT- I, II, III, AVR, AVL, AVF, V1-V3 ABNORMAL ECG COMPARED TO ECG 10/24/2019 12:41:19 RIGHT BUNDLE BRANCH BLOCK NOW PRESENT Electronically Signed On 09-27-2023 12:52:55 CDT by Conor Kim D.O.
--- NOTE | 2023-09-27 12:21 | ED.NEUROSD ---
HPI - Neuro Symptoms/Deficit General Chief Complaint: Suspected CVA Stated Complaint: L SIDE WEAKNESS Time Seen by Provider: 09/27/23 12:18 Source: patient Mode of arrival: ambulatory Limitations: no limitations History of Present Illness HPI Narrative: 88-year-old male with a history of hypertension, BPH, arthritis status post bilateral intra-articular knee injections this morning developed -- right upper extremity weakness at 11:00 a.m. No other new neuro deficit noted. Blood sugar 116 Onset (ago): hour(s) (1,5 hours ago) Last Observed Normal: 11:00 Timing confirmed by: family member Location: right arm History of same: No Quality: weak Exacerbating factors: none Context: sudden onset On Anticoagulants: No Associated symptoms: denies other symptoms Treatments Prior to Arrival: none Related Data Home Medications Medication Instructions Recorded Confirmed dutasteride 0.5 mg capsule 0.5 mg PO DAILY 09/27/23 09/27/23 Allergies Allergy/AdvReac Type Severity Reaction Status Date / Time No Known Allergies Allergy Verified 09/27/23 12:21 Review of Systems Review of Systems: All systems reviewed & are unremarkable except as noted in HPI and below Constitutional: Constitutional: Reports as per HPI and Reports no additional constitutional complaints Eyes: Eyes: Reports as per HPI and Reports no additional eye complaints ENT: Reports system reviewed and no additional complaints, except as documented and Reports as per HPI Cardiovascular: Cardiovascular: Reports as per HPI and Reports no additional cardiovascular complaints Respiratory: Respiratory: Reports as per HPI and Reports no additional respiratory complaints Gastrointestinal: Gastrointestinal: Reports as per HPI and Reports no additional gastrointestinal complaints Genitourinary: Genitourinary: Reports no additional male genitourinary complaints and Reports as per HPI Musculoskeletal: Musculoskeletal: Reports no additional musculoskeletal complaints Integumentary/Breasts: Skin/Breast: Reports system reviewed and no additional complaints, except as docu and Reports as per HPI Neurologic: Reports system reviewed and no additional complaints, except as documented and Reports as per HPI Comments: right upper extremity weakness Psychiatric: Psychiatric: Reports no additional psychiatric complaints and Reports as per HPI Endocrine: Endocrine: Reports no additional endocrine complaints and Reports as per HPI Hematologic/Lymphatic: Hematologic/Lymphatic: Reports no additional hematologic/lymphatic complaints and Reports as per HPI Allergic/Immunologic: Allergic/Immunologic: Reports no additional allergic/immunologic complaints and Reports as per HPI [facility] Past Medical History Medical History (Updated 09/27/23 @ 13:25 by Micah Mercer MD) BPH (benign prostatic hyperplasia) HTN (hypertension) Social History Social History Smoking status: Never smoker Alcohol intake: never Substance use: never Gender identity (if verbalized by the patient): Male Spiritual care concerns: No Agree to blood products: Yes Exam Const: General: cooperative, healthy appearing, comfortable and no acute distress Orientation/consciousness: oriented to person, oriented to place and oriented to time Limitations: no limitations HENMT: Head: normal to inspection, No palpable skull fracture present, normocephalic and atraumatic Ears: hearing grossly normal bilaterally and external ears normal Face/Nose/Sinus: Normal external nose present and Normal nares present Face and sinus: normal facial exam, sinuses nontender and face symmetric Mouth: Yes Normal oral and palatal mucosa present, Yes lip normal and Yes tongue normal Eyes: General: appearance normal, both eyes and all related structures Visual Morejon: normal visual morejon by confrontation Alignment and Position: alignment normal Periorbital: p
[2023-09-27 12:24] LABS: Glucose Point of Care 116 mg/dl (65-105)
[2023-09-27 12:28] LABS: Basophils Absolute Auto 0.07 K/mm3 (0.00-0.10); Basophils Percent Auto 1.2 % (0.0-1.0); Eosinophils Absolute Auto 0.21 K/mm3 (0.02-0.50); Eosinophils Percent Auto 3.7 % (1.0-6.0); Hematocrit 39.4 % (37.0-46.0); Hemoglobin 13.1 g/dL (12.4-15.3); Immature Granulocyte Absolute 0.02 K/mm3 (0.00-0.00); Immature Granulocyte Percent A 0.4 % (0.0-0.0); Lymphocytes Absolute Auto 0.49 K/mm3 (1.10-4.50); Lymphocytes Percent Auto 8.6 % (18.0-42.0); Mean Corpuscular HGB Conc 33.2 g/dL (32-36); Mean Corpuscular Hemoglobin 31.7 pg (27.0-31.0); Mean Corpuscular Volume 95.4 fL (78.0-102.0); Mean Platelet Volume 8.9 fl (8.7-11.0); Monocytes Absolute Auto 0.33 K/mm3 (0.10-0.90); Monocytes Percent Auto 5.8 % (2.0-11.0); Neutrophils Absolute Auto 4.58 K/mm3 (1.70-7.20); Neutrophils Percent Auto 80.3 % (50.0-70.0); Platelet Count Result 224 K/mm3 (150-420); Red Blood Count 4.13 M/mm3 (4.70-6.10); Red Cell Distribution Width 14.7 % (11.6-14.4); White Blood Count 5.7 K/mm3 (4.8-10.8)
[2023-09-27 12:41] LABS: INR 1.1; Partial Thromboplastin Time 27.9 Sec (23.9-30.70); Prothrombin Time 11.9 Seconds (9.50-12.1)
[2023-09-27 12:46] LABS: Anion Gap 15 mmol/L (8-16); Blood Urea Nitrogen 25 mg/dL (7-18); Calcium 9.4 mg/dL (8.5-10.1); Carbon Dioxide 20 mmol/L (21-32); Chloride 104 mmol/L (98-108); Estimated CRCL calculation 29 ml/min; Estimated Glomerular Filt Rate 40; Glucose 112 mg/dL (70-99); Osmolality Calculated 293 mOsm/kg (285-295); Potassium 4.4 mmol/L (3.5-5.1); Sodium 139 mmol/L (136-145); Troponin I 14.9 ng/L (0.00-60.4)
[2023-09-27 12:47] LABS: Alanine Aminotransferase 9 U/L (16-63); Albumin Level 4.3 g/dL (3.4-5.0); Alkaline Phosphatase 76 U/L (46-116); Aspartate Amino Transferase 11 U/L (15-37); Bilirubin,Total 1.3 mg/dL (0.00-1.00); Total Protein 7.1 g/dL (6.4-8.2)
[2023-09-27 12:51] LABS: Thyroid Stimulating Hormone 3.49 uIU/mL (0.36-3.74)
== END 2023-09-27 13:38 | disposition short-term general hospital (02) ==
PROVIDERS: Emergency Provider Internal Medicine Critical Care Medicine; PCP Internal Medicine
DX: I63.9 Cerebral infarction, unspecified (principal); G83.21 Monoplegia of upper limb affecting right dominant side; I10 Essential (primary) hypertension
CPT/HCPCS: 36415; 37195; 70450; 80053; 81003; 82948; 84443; 84484; 85025; 85610; 85730; 93005; 99285; J2997

== ENCOUNTER 2023-10-21 10:12 | Outpatient (CLI) | payer MEDICARE, SELFPAY ==
--- NOTE | ~2023-10-21 | XR_ITS ---
EXAMINATION: XR hip LT min 2V DATE: 10/21/2023 10:41 INDICATION: Left hip pain. TECHNIQUE: 2 views of left hip were obtained. COMPARISON: None. FINDINGS: Bone alignment is normal. No fracture. There is advanced left hip osteoarthritis with volum e loss of the femoral head and enlargement of the acetabulum. There are dystrophic calcifications abo ut the hip. IMPRESSION: 1. Advanced left hip osteoarthritis. Reviewed, dictated and finalized at location E.
--- NOTE | ~2023-10-21 | XR_ITS ---
EXAMINATION: XR knee RT 3V DATE: 10/21/2023 10:41 INDICATION: Right knee pain. TECHNIQUE: 3 views of right knee were obtained. COMPARISON: None. FINDINGS: Bone alignment is normal. No fracture. There is severe tricompartmental osteoarthritis. No knee joint effusion. There are loose bodies in the knee joint. Ossification posterior to the knee may be a loose body in a Pabon's cyst. IMPRESSION: 1. Severe right knee osteoarthritis with loose bodies. Reviewed, dictated and finalized at location E.
== END 2023-10-21 10:13 | disposition home or self-care (01) ==
LOC: CHSIMG 10:14
PROVIDERS: PCP Internal Medicine; Visit Provider Internal Medicine
DX: M25.562 Pain in left knee (principal); M25.561 Pain in right knee; M16.12 Unilateral primary osteoarthritis, left hip; M17.11 Unilateral primary osteoarthritis, right knee; M23.41 Loose body in knee, right knee
CPT/HCPCS: 73502; 73562